=== PATIENT | female | born 1965 | race Hispanic/Latino ===

== ENCOUNTER 2021-04-11 14:06 | Inpatient (IN) | payer OTHER ==
[~2021-04-11] VITALS: Ht 152.4 cm; Wt 68.0 kg
[~2021-04-11 14:06] MED LIST: METFORMIN HCL500 M2 PO
[2021-04-11] MEDS ORDERED: SODIUM CHLORIDE 0.9% 1000ML 1,000 ML ONE ×2 (14:24→14:29)
[2021-04-11 14:30] LABS: BASOPHILS # (AUTO) 0.1 (0.0-0.1); BASOPHILS % 0.6 % (0.0-1.0); EOSINOPHILS # (AUTO) 0.1 (0.0-0.4); EOSINOPHILS % 0.6 % (0.0-6.0); HEMATOCRIT 44.7 % (34.2-44.1); LYMPHOCYTES # (AUTO) 1.4 (1.0-3.2); LYMPHOCYTES % 15.2 % (18.0-39.1); MEAN CORPUSCULAR HEMOGLOBIN 25.2 pg (28-32); MEAN CORPUSCULAR HGB CONC 31.3 g/dL (31-35); MEAN CORPUSCULAR VOLUME 80.4 fL (81-99); MONOCYTES # (AUTO) 0.4 (0.2-0.8); MONOCYTES % 4.1 % (4.4-11.3); NEUTROPHILS # (AUTO) 7.2 (2.1-6.9); NEUTROPHILS % 79.2 % (38.7-80.0); PLATELET COUNT 281 x10e3/uL (140-360); RED BLOOD COUNT 5.56 x10e6/uL (3.6-5.1); RED CELL DISTRIBUTION WIDTH 14.3 % (11.7-14.4)
[2021-04-11 14:40] LABS: INR 0.94
[2021-04-11] MEDS ORDERED: INSULIN REGULAR, HUMAN 100 UNIT/1 ML SQ ONE (14:45)
[2021-04-11] MEDS ORDERED: LACTATED RINGER'S 1,000 ML INJ SCH (14:45)
[2021-04-11 14:50] LABS: ALANINE AMINOTRANSFERASE 14 IU/L (0-55); ALBUMIN 4.3 g/dL (3.5-5.0); ALKALINE PHOSPHATASE 99 IU/L (40-150); BLOOD UREA NITROGEN 19 mg/dL (7-26); BUN/CREATININE RATIO 12 (6-25); CALCIUM 9.5 mg/dL (8.4-10.2); CARBON DIOXIDE 23 mmol/L (22-29); CHLORIDE 100 mmol/L (98-107); CREATINE KINASE 36 IU/L (29-168); CREATININE, SERUM 1.54 mg/dL (0.57-1.11); EST GLOMERULAR FILTRATION RATE 35 ML/MIN (60-); SODIUM 135 mmol/L (136-145)
[2021-04-11 14:52] LABS: GLUCOSE 600 mg/dL (74-118)
[2021-04-11 15:11] LABS: THYROID STIMULATING HORMONE 0.804 uIU/mL (0.350-4.940)
[2021-04-11] MEDS ORDERED: SODIUM CHLORIDE 0.9% 1000ML 1,000 ML IV SCH ×2 (15:30)
[2021-04-11 16:05] LABS: CLARITY,URINE CLEAR (CLEAR); COLOR,URINE YELLOW (YELLOW); KETONES,URINE 2+ (NEGATIVE); LEUKOCYTE ESTERASE ,URINE NEGATIVE (NEGATIVE); NITRITE,URINE NEGATIVE (NEGATIVE); PROTEIN,URINE DIPSTICK 1+ (NEGATIVE); URINE UROBILINOGEN 0.2 mg/dL (0.2 - 1)
[2021-04-11 16:17] LABS: BACTERIA,URINE RARE /HPF; HYALINE CASTS 0-1 (0-1); RBC,URINE 0-5 /HPF (0-5)
[2021-04-11] MEDS ORDERED: HYDRALAZINE HCL 20 MG/ML VIAL IV ONE (16:30)
[2021-04-11] MEDS ORDERED: ASPIRIN 81 MG ENTERIC COATED PO STA (18:16)
[2021-04-11] MEDS ORDERED: LABETALOL HCL 5 MG/ML 20ML VIAL IV PRN (18:30)
[2021-04-11 18:40] VITALS: BP 143/77
[2021-04-11] MEDS ORDERED: DEXTROSE 50% SYRINGE 50 ML IV PRN (18:45)
[2021-04-11] MEDS ORDERED: ROSUVASTATIN CA40 MG PO (18:47)
[2021-04-11] MEDS ORDERED: SOLIQUA 100 UNIT3 ML SQ (18:47)
[2021-04-11 19:15] VITALS: BP 143/98
[2021-04-11 19:49] LABS: ANION GAP 14.6 mmol/L (8-16); CREATININE, SERUM 0.97 mg/dL (0.57-1.11); POTASSIUM 3.6 mmol/L (3.5-5.1)
[2021-04-11 20:00] VITALS: BP 143/98
[2021-04-11 20:53] LABS: CLARITY,URINE CLEAR (CLEAR); COLOR,URINE YELLOW (YELLOW); LEUKOCYTE ESTERASE ,URINE TRACE (NEGATIVE); NITRITE,URINE NEGATIVE (NEGATIVE)
[2021-04-11 20:54] LABS: KETONES,URINE 2+ (NEGATIVE); PROTEIN,URINE DIPSTICK 2+ (NEGATIVE); URINE UROBILINOGEN 0.2 mg/dL (0.2 - 1)
[2021-04-11 21:00] VITALS: BP 143/98
[2021-04-11 21:03] LABS: BACTERIA,URINE FEW /HPF; EPITHELIAL CELLS,URINE RARE /LPF
[2021-04-11] MEDS: INSULIN GLARGINE 100 UNITS/ML VIAL SQ SCH (21:22)
[2021-04-11] MEDS: INSULIN LISPRO 100 UNIT/1 ML 3ML VIAL SQ SCH (21:22)
[2021-04-11] MEDS: ATORVASTATIN 40 MG TAB PO SCH (21:23)
[2021-04-11] MEDS ORDERED: INFLUENZA VIRUS VAC SPLIT INJ 0.5 ML SYR IM SCH (22:17)
[2021-04-12] VITALS (10 sets, daily range): BP systolic 144–217; BP diastolic 62–99
[2021-04-12 05:59] LABS: BASOPHILS # (AUTO) 0.1 (0.0-0.1); BASOPHILS % 0.6 % (0.0-1.0); EOSINOPHILS # (AUTO) 0.1 (0.0-0.4); EOSINOPHILS % 0.9 % (0.0-6.0); HEMATOCRIT 37.9 % (34.2-44.1); HEMOGLOBIN 12.3 g/dL (12.0-16.0); LYMPHOCYTES # (AUTO) 2.3 (1.0-3.2); LYMPHOCYTES % 22.4 % (18.0-39.1); MEAN CORPUSCULAR HEMOGLOBIN 25.5 pg (28-32); MEAN CORPUSCULAR HGB CONC 32.5 g/dL (31-35); MEAN CORPUSCULAR VOLUME 78.6 fL (81-99); MONOCYTES # (AUTO) 0.5 (0.2-0.8); MONOCYTES % 4.5 % (4.4-11.3); NEUTROPHILS # (AUTO) 7.2 (2.1-6.9); NEUTROPHILS % 71.2 % (38.7-80.0); PLATELET COUNT 268 x10e3/uL (140-360); RED BLOOD COUNT 4.82 x10e6/uL (3.6-5.1); RED CELL DISTRIBUTION WIDTH 14.2 % (11.7-14.4)
[2021-04-12 06:43] LABS: ALBUMIN 3.7 g/dL (3.5-5.0); ANION GAP 13.7 mmol/L (8-16); CHOL/HDL RATIO 4.1 (3.0-3.6); CREATININE, SERUM 0.87 mg/dL (0.57-1.11); POTASSIUM 3.7 mmol/L (3.5-5.1)
[2021-04-12 07:34] LABS: THYROID STIMULATING HORMONE 1.042 uIU/mL (0.350-4.940)
[2021-04-12] MEDS: LOSARTAN POTASSIUM 100 MG TAB PO SCH ×2 (08:28→16:36)
[2021-04-12] MEDS: METFORMIN HCL 500 MG TAB CR PO SCH ×2 (08:28→16:35)
[2021-04-12] MEDS: ASPIRIN 81 MG ENTERIC COATED PO SCH (08:28)
[2021-04-12] MEDS ORDERED: CLOPIDOGREL BISULFATE 75 MG TAB PO SCH (09:00)
[2021-04-12] MEDS: INSULIN LISPRO 100 UNIT/1 ML 3ML VIAL SQ SCH ×4 (09:58→21:00)
[2021-04-12] MEDS ORDERED: IOPAMIDOL 370 MG/ML 200 ML INFUS..BTL INJ ONE (10:39)
[2021-04-12] MEDS ORDERED: SODIUM CHLORIDE 0.9% 100 ML ONE (10:39)
[2021-04-12] MEDS: AMLODIPINE BESYLATE 5 MG TAB PO SCH (12:13)
[2021-04-12] MEDS ORDERED: LACTATED RINGER'S 1,000 ML INJ SCH (14:45)
[2021-04-12] MEDS: APIXABAN 5 MG TABLET PO SCH (16:35)
[2021-04-12] MEDS: AMIODARONE HCL 200 MG TAB PO SCH (16:36)
[2021-04-12] MEDS: ATORVASTATIN 40 MG TAB PO SCH (20:45)
[2021-04-12] MEDS: INSULIN GLARGINE 100 UNITS/ML VIAL SQ SCH (20:46)
[2021-04-13] VITALS (10 sets, daily range): BP systolic 122–150; BP diastolic 63–74
[2021-04-13 05:18] LABS: ANION GAP 14.4 mmol/L (8-16); CALCIUM 8.9 mg/dL (8.4-10.2); CREATININE, SERUM 0.83 mg/dL (0.57-1.11); POTASSIUM 3.4 mmol/L (3.5-5.1)
[2021-04-13] MEDS ORDERED: POTASSIUM CHLORIDE 20 MEQ TAB CR PO ONE (07:45)
[2021-04-13] MEDS: AMIODARONE HCL 200 MG TAB PO SCH ×2 (08:14→16:24)
[2021-04-13] MEDS: ASPIRIN 81 MG ENTERIC COATED PO SCH (08:14)
[2021-04-13] MEDS: METFORMIN HCL 500 MG TAB CR PO SCH ×2 (08:16→16:24)
[2021-04-13] MEDS: LOSARTAN POTASSIUM 100 MG TAB PO SCH ×2 (08:16→16:24)
[2021-04-13] MEDS: AMLODIPINE BESYLATE 5 MG TAB PO SCH (08:16)
[2021-04-13] MEDS: APIXABAN 5 MG TABLET PO SCH ×2 (08:16→16:24)
[2021-04-13] MEDS: INSULIN LISPRO 100 UNIT/1 ML 3ML VIAL SQ SCH ×3 (10:15→16:37)
[2021-04-13] MEDS: ATORVASTATIN 40 MG TAB PO SCH (20:04)
[2021-04-13] MEDS: HYDROCODONE/APAP 5MG-325MG TAB PO PRN (21:00)
[2021-04-14] VITALS (7 sets, daily range): BP systolic 110–153; BP diastolic 56–70
[2021-04-14] MEDS: INSULIN LISPRO 100 UNIT/1 ML 3ML VIAL SQ SCH ×5 (00:50→20:21)
[2021-04-14] MEDS: INSULIN GLARGINE 100 UNITS/ML VIAL SQ SCH ×2 (00:51→20:22)
[2021-04-14 04:57] LABS: BASOPHILS % 0.5 % (0.0-1.0); EOSINOPHILS # (AUTO) 0.2 (0.0-0.4); EOSINOPHILS % 2.9 % (0.0-6.0); HEMATOCRIT 37.5 % (34.2-44.1); HEMOGLOBIN 11.6 g/dL (12.0-16.0); LYMPHOCYTES # (AUTO) 2.7 (1.0-3.2); LYMPHOCYTES % 32.5 % (18.0-39.1); MEAN CORPUSCULAR HEMOGLOBIN 25.3 pg (28-32); MEAN CORPUSCULAR HGB CONC 30.9 g/dL (31-35); MEAN CORPUSCULAR VOLUME 81.9 fL (81-99); MONOCYTES # (AUTO) 0.7 (0.2-0.8); NEUTROPHILS # (AUTO) 4.6 (2.1-6.9); PLATELET COUNT 259 x10e3/uL (140-360); RED BLOOD COUNT 4.58 x10e6/uL (3.6-5.1); RED CELL DISTRIBUTION WIDTH 14.6 % (11.7-14.4)
[2021-04-14 05:19] LABS: CALCIUM 8.5 mg/dL (8.4-10.2); CREATININE, SERUM 0.78 mg/dL (0.57-1.11); MAGNESIUM 1.9 MG/DL (1.3-2.1)
[2021-04-14] MEDS: AMIODARONE HCL 200 MG TAB PO SCH ×2 (08:41→16:34)
[2021-04-14] MEDS: ASPIRIN 81 MG ENTERIC COATED PO SCH (08:41)
[2021-04-14] MEDS: APIXABAN 5 MG TABLET PO SCH ×2 (08:42→16:34)
[2021-04-14] MEDS: AMLODIPINE BESYLATE 5 MG TAB PO SCH (08:42)
[2021-04-14] MEDS: LOSARTAN POTASSIUM 100 MG TAB PO SCH ×2 (08:42→16:34)
[2021-04-14] MEDS: ESCITALOPRAM OXALATE 10 MG TAB PO SCH (08:42)
[2021-04-14] MEDS: METFORMIN HCL 500 MG TAB CR PO SCH ×2 (08:42→16:35)
[2021-04-14] MEDS: HYDROCODONE/APAP 5MG-325MG TAB PO PRN (19:50)
[2021-04-14] MEDS: ATORVASTATIN 40 MG TAB PO SCH (20:03)
[2021-04-15] VITALS (8 sets, daily range): BP systolic 121–171; BP diastolic 61–83
[2021-04-15 06:09] LABS: BASOPHILS # (AUTO) 0.1 (0.0-0.1); BASOPHILS % 0.6 % (0.0-1.0); EOSINOPHILS # (AUTO) 0.2 (0.0-0.4); EOSINOPHILS % 2.2 % (0.0-6.0); HEMATOCRIT 39.5 % (34.2-44.1); HEMOGLOBIN 12.2 g/dL (12.0-16.0); LYMPHOCYTES # (AUTO) 2.1 (1.0-3.2); LYMPHOCYTES % 24.5 % (18.0-39.1); MEAN CORPUSCULAR HEMOGLOBIN 25.2 pg (28-32); MEAN CORPUSCULAR HGB CONC 30.9 g/dL (31-35); MEAN CORPUSCULAR VOLUME 81.6 fL (81-99); MONOCYTES # (AUTO) 0.5 (0.2-0.8); MONOCYTES % 5.6 % (4.4-11.3); NEUTROPHILS # (AUTO) 5.7 (2.1-6.9); NEUTROPHILS % 66.7 % (38.7-80.0); PLATELET COUNT 252 x10e3/uL (140-360); RED BLOOD COUNT 4.84 x10e6/uL (3.6-5.1); RED CELL DISTRIBUTION WIDTH 14.3 % (11.7-14.4)
[2021-04-15 07:24] LABS: FERRITIN 36.85 ng/mL (4.63-204.00)
[2021-04-15] MEDS: AMIODARONE HCL 200 MG TAB PO SCH ×2 (09:02→17:08)
[2021-04-15] MEDS: ASPIRIN 81 MG ENTERIC COATED PO SCH (09:02)
[2021-04-15] MEDS: LOSARTAN POTASSIUM 100 MG TAB PO SCH ×2 (09:02→17:08)
[2021-04-15] MEDS: APIXABAN 5 MG TABLET PO SCH ×2 (09:03→17:08)
[2021-04-15] MEDS: METFORMIN HCL 500 MG TAB CR PO SCH ×2 (09:03→17:08)
[2021-04-15] MEDS: ESCITALOPRAM OXALATE 10 MG TAB PO SCH (09:04)
[2021-04-15] MEDS: AMLODIPINE BESYLATE 5 MG TAB PO SCH (09:04)
[2021-04-15] MEDS: ONDANSETRON HCL INJ 2MG/ML 2ML 2 MG/ML VIAL IV PRN (09:05)
[2021-04-15] MEDS: INSULIN LISPRO 100 UNIT/1 ML 3ML VIAL SQ SCH ×4 (09:13→21:18)
[2021-04-15] MEDS: INSULIN GLARGINE 100 UNITS/ML VIAL SQ SCH (21:18)
[2021-04-15] MEDS: ATORVASTATIN 40 MG TAB PO SCH (21:32)
[2021-04-16] VITALS (7 sets, daily range): BP systolic 124–164; BP diastolic 65–80
[2021-04-16] MEDS: ONDANSETRON HCL INJ 2MG/ML 2ML 2 MG/ML VIAL IV PRN ×2 (00:15→21:10)
[2021-04-16 05:10] LABS: BASOPHILS # (AUTO) 0.1 (0.0-0.1); BASOPHILS % 0.6 % (0.0-1.0); EOSINOPHILS # (AUTO) 0.2 (0.0-0.4); HEMATOCRIT 39.8 % (34.2-44.1); HEMOGLOBIN 12.3 g/dL (12.0-16.0); LYMPHOCYTES # (AUTO) 1.8 (1.0-3.2); LYMPHOCYTES % 17.1 % (18.0-39.1); MEAN CORPUSCULAR HEMOGLOBIN 25.5 pg (28-32); MEAN CORPUSCULAR HGB CONC 30.9 g/dL (31-35); MEAN CORPUSCULAR VOLUME 82.6 fL (81-99); MONOCYTES # (AUTO) 0.5 (0.2-0.8); NEUTROPHILS # (AUTO) 8.1 (2.1-6.9); PLATELET COUNT 254 x10e3/uL (140-360); RED BLOOD COUNT 4.82 x10e6/uL (3.6-5.1); RED CELL DISTRIBUTION WIDTH 14.3 % (11.7-14.4)
[2021-04-16 05:42] LABS: ANION GAP 14.2 mmol/L (8-16); CALCIUM 8.8 mg/dL (8.4-10.2); CREATININE, SERUM 0.77 mg/dL (0.57-1.11); POTASSIUM 4.2 mmol/L (3.5-5.1)
[2021-04-16] MEDS: AMIODARONE HCL 200 MG TAB PO SCH (08:48)
[2021-04-16] MEDS: APIXABAN 5 MG TABLET PO SCH ×2 (08:48→17:36)
[2021-04-16] MEDS: LOSARTAN POTASSIUM 100 MG TAB PO SCH ×2 (08:48→17:36)
[2021-04-16] MEDS: ESCITALOPRAM OXALATE 10 MG TAB PO SCH (08:48)
[2021-04-16] MEDS: AMLODIPINE BESYLATE 5 MG TAB PO SCH (08:48)
[2021-04-16] MEDS: METFORMIN HCL 500 MG TAB CR PO SCH ×2 (08:48→17:36)
[2021-04-16] MEDS: ASPIRIN 81 MG ENTERIC COATED PO SCH (08:48)
[2021-04-16] MEDS: INSULIN LISPRO 100 UNIT/1 ML 3ML VIAL SQ SCH ×4 (08:49→21:08)
[2021-04-16] MEDS: INSULIN GLARGINE 100 UNITS/ML VIAL SQ SCH (21:09)
[2021-04-16] MEDS: ATORVASTATIN 40 MG TAB PO SCH (21:28)
[2021-04-17] VITALS (8 sets, daily range): BP systolic 108–160; BP diastolic 61–72
[2021-04-17] MEDS: INSULIN LISPRO 100 UNIT/1 ML 3ML VIAL SQ SCH ×4 (07:30→21:00)
[2021-04-17] MEDS: GLIMEPIRIDE 2 MG TAB PO SCH (09:16)
[2021-04-17] MEDS: LOSARTAN POTASSIUM 100 MG TAB PO SCH ×2 (09:16→16:50)
[2021-04-17] MEDS: METFORMIN HCL 500 MG TAB CR PO SCH ×2 (09:16→16:50)
[2021-04-17] MEDS: APIXABAN 5 MG TABLET PO SCH ×2 (09:16→16:49)
[2021-04-17] MEDS: ESCITALOPRAM OXALATE 10 MG TAB PO SCH (09:16)
[2021-04-17] MEDS: AMIODARONE HCL 200 MG TAB PO SCH (09:16)
[2021-04-17] MEDS: AMLODIPINE BESYLATE 5 MG TAB PO SCH (09:16)
[2021-04-17] MEDS: ASPIRIN 81 MG ENTERIC COATED PO SCH (09:16)
[2021-04-17] MEDS: ATORVASTATIN 40 MG TAB PO SCH (21:05)
[2021-04-17] MEDS: INSULIN GLARGINE 100 UNITS/ML VIAL SQ SCH (21:09)
[2021-04-18] VITALS (7 sets, daily range): BP systolic 131–155; BP diastolic 64–81
[2021-04-18] MEDS: INSULIN LISPRO 100 UNIT/1 ML 3ML VIAL SQ SCH ×4 (07:30→21:45)
[2021-04-18] MEDS: AMIODARONE HCL 200 MG TAB PO SCH (08:35)
[2021-04-18] MEDS: ASPIRIN 81 MG ENTERIC COATED PO SCH (08:35)
[2021-04-18] MEDS: GLIMEPIRIDE 2 MG TAB PO SCH (08:35)
[2021-04-18] MEDS: APIXABAN 5 MG TABLET PO SCH ×2 (08:36→16:08)
[2021-04-18] MEDS: METFORMIN HCL 500 MG TAB CR PO SCH ×2 (08:36→16:08)
[2021-04-18] MEDS: LOSARTAN POTASSIUM 100 MG TAB PO SCH ×2 (08:36→16:08)
[2021-04-18] MEDS: ESCITALOPRAM OXALATE 10 MG TAB PO SCH (08:36)
[2021-04-18] MEDS: AMLODIPINE BESYLATE 5 MG TAB PO SCH (08:36)
[2021-04-18] MEDS: ONDANSETRON HCL INJ 2MG/ML 2ML 2 MG/ML VIAL IV PRN (16:24)
[2021-04-18] MEDS: INSULIN GLARGINE 100 UNITS/ML VIAL SQ SCH (21:00)
[2021-04-18] MEDS: ATORVASTATIN 40 MG TAB PO SCH (21:25)
[2021-04-19] VITALS (8 sets, daily range): BP systolic 118–169; BP diastolic 57–76
[2021-04-19] MEDS: INSULIN LISPRO 100 UNIT/1 ML 3ML VIAL SQ SCH ×4 (08:38→21:03)
[2021-04-19] MEDS: GLIMEPIRIDE 2 MG TAB PO SCH (08:39)
[2021-04-19] MEDS: ASPIRIN 81 MG ENTERIC COATED PO SCH (08:39)
[2021-04-19] MEDS: APIXABAN 5 MG TABLET PO SCH ×2 (08:39→17:25)
[2021-04-19] MEDS: AMIODARONE HCL 200 MG TAB PO SCH (08:39)
[2021-04-19] MEDS: LOSARTAN POTASSIUM 100 MG TAB PO SCH ×2 (08:39→17:24)
[2021-04-19] MEDS: ESCITALOPRAM OXALATE 10 MG TAB PO SCH (08:40)
[2021-04-19] MEDS: AMLODIPINE BESYLATE 5 MG TAB PO SCH (08:40)
[2021-04-19] MEDS: METFORMIN HCL 500 MG TAB CR PO SCH ×2 (08:40→17:25)
[2021-04-19] MEDS: ATORVASTATIN 40 MG TAB PO SCH (21:01)
[2021-04-19] MEDS: INSULIN GLARGINE 100 UNITS/ML VIAL SQ SCH (21:03)
[2021-04-20] VITALS: BP 145/86
[2021-04-20 04:00] VITALS: BP 116/98
[2021-04-20 06:01] LABS: BASOPHILS # (AUTO) 0.1 (0.0-0.1); BASOPHILS % 0.5 % (0.0-1.0); EOSINOPHILS # (AUTO) 0.2 (0.0-0.4); EOSINOPHILS % 2.5 % (0.0-6.0); HEMATOCRIT 36.3 % (34.2-44.1); HEMOGLOBIN 11.6 g/dL (12.0-16.0); LYMPHOCYTES # (AUTO) 2.6 (1.0-3.2); MEAN CORPUSCULAR HEMOGLOBIN 25.6 pg (28-32); MONOCYTES # (AUTO) 0.7 (0.2-0.8); MONOCYTES % 6.9 % (4.4-11.3); NEUTROPHILS # (AUTO) 6.1 (2.1-6.9); NEUTROPHILS % 62.6 % (38.7-80.0); PLATELET COUNT 295 x10e3/uL (140-360); RED BLOOD COUNT 4.54 x10e6/uL (3.6-5.1); RED CELL DISTRIBUTION WIDTH 13.8 % (11.7-14.4)
[2021-04-20 06:18] LABS: ANION GAP 11.4 mmol/L (8-16); CALCIUM 8.4 mg/dL (8.4-10.2); CREATININE, SERUM 0.73 mg/dL (0.57-1.11); POTASSIUM 4.4 mmol/L (3.5-5.1)
[2021-04-20 07:16] VITALS: BP 130/78
[2021-04-20] MEDS: INSULIN LISPRO 100 UNIT/1 ML 3ML VIAL SQ SCH ×3 (07:56→17:18)
[2021-04-20] MEDS: ASPIRIN 81 MG ENTERIC COATED PO SCH (09:54)
[2021-04-20] MEDS: ESCITALOPRAM OXALATE 10 MG TAB PO SCH (09:54)
[2021-04-20] MEDS: AMIODARONE HCL 200 MG TAB PO SCH (09:54)
[2021-04-20] MEDS: GLIMEPIRIDE 2 MG TAB PO SCH (09:54)
[2021-04-20] MEDS: APIXABAN 5 MG TABLET PO SCH ×2 (09:54→17:17)
[2021-04-20] MEDS: AMLODIPINE BESYLATE 5 MG TAB PO SCH (09:54)
[2021-04-20] MEDS: METFORMIN HCL 500 MG TAB CR PO SCH ×2 (09:54→17:17)
[2021-04-20] MEDS: LOSARTAN POTASSIUM 100 MG TAB PO SCH ×2 (09:54→17:17)
[2021-04-20 11:11] VITALS: BP 135/65
[2021-04-20 14:54] VITALS: BP 139/67
== END 2021-04-20 19:07 | DRG 65 ==
LOC: ER 14:22 → ERHOLD 15:54 → MED/SURG2 18:24 → MED/SURG 04-14 21:26
PROVIDERS: ADMIT Internal Medicine; ATTEND Internal Medicine
DX: I63.29 Cerebral infarction due to unspecified occlusion or stenosis of other precerebral arteries (principal); G81.91 Hemiplegia, unspecified affecting right dominant side; N39.0 Urinary tract infection, site not specified; Z79.84 Long term (current) use of oral hypoglycemic drugs; I10 Essential (primary) hypertension; E78.5 Hyperlipidemia, unspecified; I48.0 Paroxysmal atrial fibrillation; E11.65 Type 2 diabetes mellitus with hyperglycemia; R29.810 Facial weakness; F32.A Depression, unspecified; E66.9 Obesity, unspecified; Z68.29 Body mass index [BMI] 29.0-29.9, adult; R47.01 Aphasia; Z20.822 Contact with and (suspected) exposure to COVID-19; R29.714 NIHSS score 14
CPT/HCPCS: 36415; 51700; 70450; 70496; 70498; 70551; 71045; 80048; 80053; 80061; 81001; 82270; 82550; 82553; 82607; 82728; 82746; 82948; 83036; 83090; 83540; 83735; 84443; 84466; 84484; 85025; 85597; 85598; 85610; 85613; 85730; 85732; 86039; 86146; 86147; 86148; 86849; 87086; 93005; 93306; 93880; 97139; 99284; J0360; J1815; J1817; J2405; J7030; J7050; J7121; Q9967; U0002